=== PATIENT | male | born 1965 | race Caucasian/White ===

== ENCOUNTER 2022-06-09 00:14 | Emergency (ER) | payer BC ==
[~2022-06-09] VITALS: Ht 180.3 cm; Wt 83.9 kg
[2022-06-09 00:27] VITALS: BP 132/74
--- NOTE | 2022-06-09 00:39 | NUR ---
Patient discharged to home in stable condition. Written and verbal after care instructions given. Patient verbalizes understanding of instruction.
== END 2022-06-09 00:40 | disposition home or self-care (01) ==
LOC: ER 00:32
DX: Z71.1 Person with feared health complaint in whom no diagnosis is made (principal); Z60.2 Problems related to living alone